=== PATIENT | male | born 1985 | race Caucasian/White ===

== ENCOUNTER 2024-05-01 16:53 | Emergency (ER) | payer OTHER, SELFPAY ==
[2024-05-01 16:58] VITALS: BP 111/73
--- NOTE | 2024-05-01 17:03 | ED.PDOC.TR ---
ED Provider Triage
-
Patient seen by provider in Triage?: Seen in Triage
Pt was assessed in triage as a rapid assessment to expedite ongoing care with expectation of further assessment.
39-year-old male without significant past medical history presenting to the emergency department today with concerns of left lower quadrant abdominal pain worsening over the past few days. Reproducible tenderness to the left lower quadrant concern
for potential diverticulitis plan for CT scan for further assessment.
[2024-05-01 17:24] LABS: % Basophils 0.4 % (0-2); % Eosinophils 3.6 % (0-6); % Immature Granulocytes 0.3 % (0-0.5); % Lymphocytes 14.7 % (20.5-51.1); % Monocytes 8.8 % (1.7-9.3); % Neutrophils 72.2 % (42.2-75.2); Absolute Basophils 0.1 10^3/uL (0-0.2); Absolute Eosinophils 0.4 10^3/uL (0-0.7); Absolute Lymphocytes 1.8 10^3/uL (1.2-3.4); Absolute Monocytes 1.1 10^3/uL (0.1-0.6); Absolute Neutrophils 8.7 10^3/uL (1.4-6.5); Hematocrit 44.5 % (39.0-52.0); Hemoglobin 15.3 g/dL (13.0-18.0); Mean Corp Hgb Conc. 34.4 g/dL (33.0-37.0); Mean Corpuscular Hgb 30.4 pg (27.0-31.0); Mean Corpuscular Volume 88.5 fL (80.0-94.0); Nucleated Red Blood Cells % 0 % (-); Platelet Count 203 10^3/uL (130-400); Red Blood Cell Count 5.03 10^6/uL (4.70-6.10); Red Cell Dist. Width 12.7 % (11.5-14.5)
[2024-05-01 17:39] LABS: ALT (SGPT) 33 U/L (0-50); AST (SGOT) 33 U/L (17-59); Albumin 4.3 g/dl (3.5-5.0); Alkaline Phosphatase 54 U/L (38-126); Blood Urea Nitrogen 15 mg/dl (9-20); Calcium 9.4 mg/dl (8.4-10.2); Carbon Dioxide 30 mmol/L (22-30); Chloride 102 mmol/L (98-107); Glucose 92 mg/dl (70-99); Potassium 3.9 mmol/L (3.5-5.1); Sodium 139 mmol/L (135-145); Total Protein 7.3 g/dl (6.3-8.2); eGFR > 60.00
[2024-05-01 19:01] VITALS: BP 120/81
--- NOTE | 2024-05-01 19:44 | ED.GENMED ---
History of Present Illness
General
Chief Complaint: Abdominal Pain
Time Seen by Provider: 05/01/24 19:07
Travel History
Have you had any contact with someone who has COVID-19?: No
Do you have any symptoms of coronavirus? Fever > 100 degrees, chills, cough, shortness of breath, sore throat, loss of taste or smell, muscle aches, or headache?: No
History of Present Illness
History of Present Illness:
39-year-old previously healthy male presents to the emergency department for evaluation of left lower quadrant abdominal pain that began 3 days ago and is been worsening since. Denies any history of similar. Denies any associated fevers, chills,
sweats, nausea, vomiting. No prior abdominal surgeries. Denies any lower urinary tract voiding symptoms, constipation, or diarrhea
Past History
Past History
ED Past Medical History: None
ED Past Surgical History: None
Social History
Tobacco: Non-smoker
Alcohol: Occasional
Drug: None
Personal:
Living: with family
Employment: Employed
Review of Systems
Review of Systems
Allergies reviewed?: Yes
All Other Systems: ROS reviewed and negative except as documented in HPI and ROS
Phy Exam
Physical Exam
Physical Exam:
GEN: Well appearing, NAD, WDWN
Eyes: PERRLA, EOMs intact, no scleral icterus
HENT: NCAT, oral mucosa moist
Lungs: CTAB, no wheezes, rales, rhonchi, normal chest wall excursion
Cardiac: RRR, no M/R/G, no peripheral edema. Radial pulses 2+ bilat
Abdomen: Soft, moderate tenderness to the suprapubic space and left lower quadrant, no rigidity
Neuro: AO x 3
MSK: No gross deformity or ecchymosis. No edema. No digital clubbing
Skin: No rashes, petechiae. Normal color, no pallor or jaundice.
Psych: Calm, cooperative, proper hygiene
Course
Orders/Labs/Results
Orders:
Orders
05/01/24 17:02
CT Abd/Pel (IV only)-DH only Urgent
Comment:
Reason For Exam: llq pain
05/01/24 17:18
Complete Blood Count/With Diff Urgent
Comprehensive Metabolic Panel Urgent
05/01/24 19:37
Amoxicillin 875 mg/Clav 125 mg [Augmentin 875 mg/125 mg] 1 tablet PO NOW STA
Abnormal Lab Results
05/01/24
17:18
WBC 12.0 H 10^3/uL
(4.8-10.8)
MPV 11.0 H fL
(7.4-10.4)
Absolute Neuts (auto) 8.7 H 10^3/uL
(1.4-6.5)
Absolute Monos (auto) 1.1 H 10^3/uL
(0.1-0.6)
Lymphocytes % 14.7 L %
(20.5-51.1)
05/01/24 17:18
05/01/24 17:18
Vital Signs
Initial and Last Documented VS:
Initial Vital Signs
Temp Pulse Resp BP Pulse Ox
98.8 F 79 18 111/73 98
05/01/24 16:58 05/01/24 16:58 05/01/24 16:58 05/01/24 16:58 05/01/24 16:58
Last Documented Vital Signs
Temp Pulse Resp BP Pulse Ox
98.8 F 73 16 120/81 98
05/01/24 16:58 05/01/24 19:01 05/01/24 19:01 05/01/24 19:01 05/01/24 19:01
MDM/Problems Addressed
MDM/Problems Addressed:
Workup reveals acute diverticulitis, no evidence for perforation or abscess. He has no peritoneal signs worrisome for surgical abdomen. His labs are reassuring and vital signs are normal. Will start the patient on Augmentin and strict clear
liquid diet. Educated on return parameters and advised outpatient GI follow-up in 6 to 8 weeks for reevaluation
*Critical Care Note
Total Time (30-74mins, 75-104mins- exclusive of procedures): Not Applicable
ED Attending Note
-
Portions of this chart may have been created with voice recognition software.� Occasional wrong word or��sound alike� substitutions may have occurred due to the inherent limitations of voice recognition software.
Discharge Plan
Departure
Patient Disposition: Home (Routine Discharge)
Date of Disposition: 05/01/24
Time of Disposition: 19:44
Patient with high blood pressure during this ER visit?: No
Discharge Problem:
Diverticulitis
Instructions: Clear Liquid Diet, Diverticulitis (DC)
Prescriptions:
New
amoxicillin-pot clavulanate 875-125 mg tablet
1 tab PO BID Qty: 20 0RF
No Action
cephalexin 500 mg Capsule
500 mg PO QID 11 Days Qty: 44 0RF
ibuprofen 600 mg Tablet
600 mg PO Q6HPRN PRN (Reason: mild pain) 5 Days Qty: 14 0RF
Referrals:
NONE,* [Family Provider] -
Interventions
Interventions:
*Risk Screen - Suicide Last Done: 05/01/24 16:58
*General Assessment Last Done: 05/01/24 19:01
*Neglect/Abuse Screening Last Done: 05/01/24 16:58
*ED COVID-19 Vaccine History Last Done: 05/01/24 16:58
*Nursing Disposition Last Done: 05/01/24 19:55
TD-Jhiqbi-Bxqgkwwzrk Assessment Last Done: 05/01/24 19:01
Discharge Date and Time
Discharge Date/Time: 05/01/24 19:55
Print Language: YORUBA
[2024-05-01] MEDS: AUGMENTIN 875 MG/125 MG 1 TABLET PO (19:48)
== END 2024-05-01 19:55 | disposition home or self-care (01) ==
LOC: EMR 16:53
PROVIDERS: Physician Assistant; EMERGENCY PHYSICIAN Emergency Medicine
DX: K57.92 Diverticulitis of intestine, part unspecified, without perforation or abscess without bleeding (principal)
CPT/HCPCS: 99284; 74177; 80053; 85025; Q9967

== ENCOUNTER 2025-03-30 09:03 | Emergency (ER) | payer OTHER, SELFPAY ==
[2025-03-30 09:04] VITALS: BP 125/83
--- NOTE | 2025-03-30 09:31 | ED.GENMED ---
History of Present Illness
General
Chief Complaint: Chest Pain
Source: patient
Exam Limitations: none
Time Seen by Provider: 03/30/25 09:16
History of Present Illness
History of Present Illness:
40-year-old male presents with onset of chest pressure chest tightness cough and a white-colored phlegm. He coughed to the point last evening that he vomited. This started shortly after eating dinner. He states he cannot get enough air in. No
recent travel or surgery. No leg swelling or calf pain. No hemoptysis. No abdominal pain. He does note a pressure in his chest. No other complaints at this time
Past History
Past History
ED Past Medical History: None
ED Past Surgical History: None
Social History
Tobacco: Non-smoker
Alcohol: Occasional
Drug: None
Personal:
Living: with family
Employment: Employed
Phy Exam
Physical Exam
Physical Exam:
General: Well-appearing male with slight increased work of breathing.
HEENT: Normocephalic atraumatic
Heart: Regular rate and rhythm
Lungs: Expiratory wheeze noted
Extremities no cyanosis tenderness or edema
Skin is warm no rash
Scores
Heart Score for Chest Pain Patients
STEMI patient?: No
History: Slightly or Non-Suspicious
ECG: Normal
Age: </= 45 years
Risk Factors: No Risk Factors
Troponin: </= Normal Limit
Heart Score for Chest Pain Patients: 0
Heart Score Risk: 2.5% MACE over next 6 weeks
Course
Orders/Labs/Results
Orders:
Orders
03/30/25 09:08
EKG [Electrocardiogram (*1)] Urgent
Reason for Study: Chest Pain
EKG- Treatment ONCE
03/30/25 09:30
Ipratropium/Albuterol Sulfate [Duoneb] 3 ml INH R NOW STA
CXR2 [CR Chest - 2 Views ] Urgent
Comment:
Reason For Exam: cough/chest pain
03/30/25 09:57
CMP [Comprehensive Metabolic Panel] Urgent
Complete Blood Count/With Diff Urgent
Troponin I Urgent
03/30/25 10:56
Albuterol Sulfate [Ventolin Nebules] 15 mg INH R NOW STA
Dexamethasone Sod Phosphate [Decadron] 10 mg IV NOW STA
Abnormal Lab Results
03/30/25
09:57
MPV 10.9 H fL
(7.4-10.4)
Absolute Neuts (auto) 6.9 H 10^3/uL
(1.4-6.5)
Absolute Monos (auto) 0.7 H 10^3/uL
(0.1-0.6)
Lymphocytes % 12.6 L %
(20.5-51.1)
Eosinophils % 6.6 H %
(0-6)
Glucose 104 H mg/dl
(70-99)
03/30/25 09:57
03/30/25 09:57
Vital Signs
Initial and Last Documented VS:
Initial Vital Signs
Temp Pulse Resp BP Pulse Ox
98.7 F 98 18 125/83 93
03/30/25 09:04 03/30/25 09:04 03/30/25 09:04 03/30/25 09:04 03/30/25 09:04
Last Documented Vital Signs
Temp Pulse Resp BP Pulse Ox
98.7 F 98 18 125/83 93
03/30/25 09:04 03/30/25 09:04 03/30/25 09:04 03/30/25 09:04 03/30/25 09:04
MDM/Problems Addressed
Differential Diagnosis Includes:
Patient with chest pressure wheezing shortness of breath and cough. Differential could include bronchitis versus pneumonia versus ACS. No clinical signs suggestive of DVT. No risk factors for DVT or PE. Vital signs are stable
EKG shows sinus rhythm without ischemic change
Will check troponin and basic labs. Chest x-ray pending DuoNeb ordered
*Critical Care Note
Total Time (30-74mins, 75-104mins- exclusive of procedures): Not Applicable
Update Note
Update Note:
Patient has negative chest x-ray exam more consistent with acute bronchitis. He had little relief with DuoNeb and him symptoms return. Was given hour-long albuterol neb with Decadron. Will continue with nebulizer solution and steroid medicine at
home. Stable for discharge as he is not hypoxic nor is he tachypneic
ED Attending Note
-
Portions of this chart may have been created with voice recognition software.� Occasional wrong word or��sound alike� substitutions may have occurred due to the inherent limitations of voice recognition software.
Discharge Plan
Departure
Patient Disposition: Home (Routine Discharge)
Date of Disposition: 03/30/25
Time of Disposition: 12:33
Patient with high blood pressure during this ER visit?: No
Discharge Problem:
Acute bronchitis
Instructions: Acute bronchitis in adults
Prescriptions:
New
albuterol sulfate 2.5 mg /3 mL (0.083 %) solution for nebulization
2.5 mg inhalation QID PRN (Reason: shortness of breath or wheezing) Qty: 75 0RF
prednisone 20 mg tablet
40 mg PO DAILY 5 Days Qty: 10 0RF
No Action
cephalexin 500 mg Capsule
500 mg PO QID 11 Days Qty: 44 0RF
ibuprofen 600 mg Tablet
600 mg PO Q6HPRN PRN (Reason: mild pain) 5 Days Qty: 14 0RF
amoxicillin-pot clavulanate 875-125 mg tablet
1 tab PO BID Qty: 20 0RF
Referrals:
Chadwick Coombs CRNP [Family Provider] -
Activity Restrictions/Additional Instructions:
Use prednisone as directed. Use nebulizer as needed. Return if worse otherwise follow-up with your doctor
Interventions
Interventions:
*Risk Screen - Suicide Last Done: 03/30/25 09:04
*General Assessment Last Done: 03/30/25 09:04
*Neglect/Abuse Screening Last Done: 03/30/25 09:39
*ED COVID-19 Vaccine History Last Done: 03/30/25 09:04
ED- Cardiac Assessment Last Done: 03/30/25 09:34
Discharge Date and Time
Print Language: MOZAMBICAN
[2025-03-30 09:34] VITALS: BMI 29.4
[2025-03-30 09:50] VITALS: BP 120/81
[2025-03-30 10:00] VITALS: BP 120/90
[2025-03-30] MEDS: DUONEB 3 ML INH (10:00)
[2025-03-30 10:12] LABS: % Basophils 0.5 % (0-2); % Eosinophils 6.6 % (0-6); % Immature Granulocytes 0.3 % (0-0.5); % Lymphocytes 12.6 % (20.5-51.1); % Monocytes 7.7 % (1.7-9.3); % Neutrophils 72.3 % (42.2-75.2); Absolute Basophils 0.1 10^3/uL (0-0.2); Absolute Eosinophils 0.6 10^3/uL (0-0.7); Absolute Lymphocytes 1.2 10^3/uL (1.2-3.4); Absolute Monocytes 0.7 10^3/uL (0.1-0.6); Absolute Neutrophils 6.9 10^3/uL (1.4-6.5); Hematocrit 44.6 % (39.0-52.0); Mean Corp Hgb Conc. 35.9 g/dL (33.0-37.0); Mean Corpuscular Hgb 30.2 pg (27.0-31.0); Mean Corpuscular Volume 84.2 fL (80.0-94.0); Mean Platelet Volume 10.9 fL (7.4-10.4); Nucleated Red Blood Cells % 0 % (-); Platelet Count 186 10^3/uL (130-400); Red Cell Dist. Width 12.6 % (11.5-14.5); White Blood Cell Count 9.5 10^3/uL (4.8-10.8)
[2025-03-30 10:26] LABS: ALT (SGPT) 48 U/L (0-50); AST (SGOT) 33 U/L (17-59); Albumin 4.9 g/dl (3.5-5.0); Alkaline Phosphatase 56 U/L (38-126); Blood Urea Nitrogen 16 mg/dl (9-20); Calcium 9.5 mg/dl (8.4-10.2); Carbon Dioxide 24 mmol/L (22-30); Chloride 107 mmol/L (98-107); Estimated Creatinine Clearance 116 ml/min; Glucose 104 mg/dl (70-99); Potassium 4.1 mmol/L (3.5-5.1); Sodium 143 mmol/L (135-145); Total Bilirubin 1.1 mg/dl (0.2-1.3); Total Protein 7.2 g/dl (6.3-8.2); eGFR > 60.00
[2025-03-30 10:37] LABS: Troponin I < 0.012 ng/ml
[2025-03-30 11:00] VITALS: BP 119/84
[2025-03-30] MEDS: VENTOLIN NEBULES 15 MG INH (11:30)
[2025-03-30] MEDS: DECADRON 10 MG IV (11:30)
[2025-03-30 12:00] VITALS: BP 119/71
--- NOTE | 2025-03-30 12:45 | EDRN ---
Reviewed discharge instructions with patient. Verbalized understanding. Ambulated with steady gait to the lobby.
[2025-03-30 13:15] VITALS: BP 119/71
== END 2025-03-30 12:50 | disposition home or self-care (01) ==
LOC: EMR 09:03
PROVIDERS: Physician Assistant; EMERGENCY PHYSICIAN Emergency Medicine; FAMILY PHYSICIAN Nurse Practitioner Family
DX: J20.9 Acute bronchitis, unspecified (principal); R07.89 Other chest pain
CPT/HCPCS: 96374; 94640; 99285; 71046; 80053; 84484; 85025; 93005